=== PATIENT | male | born 1975 | race Caucasian/White ===

== ENCOUNTER 2019-06-14 12:15 | Emergency (ER) | payer OTHER ==
[~2019-06-14] VITALS: Ht 180.3 cm; Wt 86.2 kg
[2019-06-14] MEDS ORDERED: METHYLPREDNISOLO4 M1 PO (13:02)
[2019-06-14] MEDS ORDERED: NORCO 7.5-3251 EACH PO (13:02)
== END 2019-06-14 13:24 | disposition home or self-care (01) ==
LOC: ED 12:15
DX: M54.40 Lumbago with sciatica, unspecified side (principal); Z87.891 Personal history of nicotine dependence; Z88.6 Allergy status to analgesic agent
CPT/HCPCS: 96372; 99283; J1885